=== PATIENT | male | born 1960 ===

== ENCOUNTER → 2020-06-10 13:09 | Outpatient (CLI) | payer OTHER, SELFPAY ==
[2020-06-10] MEDS: COVID-19 VACC #1, MRNA(MOD) 100 MCG/0.5 ML VIAL IM (13:14)
== END ==
PROVIDERS: Visit Provider Internal Medicine
DX: Z23 Encounter for immunization (principal)
CPT/HCPCS: 0011A; 91301

== ENCOUNTER → 2020-07-08 13:10 | Outpatient (CLI) | payer OTHER, SELFPAY ==
[2020-07-08] MEDS: COVID-19 VACC #2, MRNA(MOD) 100 MCG/0.5 ML VIAL IM (13:13)
== END ==
PROVIDERS: Visit Provider Internal Medicine
DX: Z23 Encounter for immunization (principal)
CPT/HCPCS: 0012A; 91301

== ENCOUNTER → 2023-07-16 10:49 | Outpatient (CLI) | payer MEDICARE, SELFPAY | PROVIDERS: Visit Provider Physician Assistant | DX: T24.222A Burn of second degree of left knee, initial encounter (principal); T31.0 Burns involving less than 10% of body surface | CPT/HCPCS: 87070; 87075; 87205 ==